=== PATIENT | male | born 1930 | race Caucasian/White ===

== ENCOUNTER 2016-07-10 12:00 | Emergency (ER) | payer MEDICARE, MEDICAID ==
[~2016-07-10 12:00] MED LIST: ACETAMINOPHEN325 M2 PO; ANTI-TUSS100 MG/5 M PO; ATIVAN2 MG/1 ML PO/SL; AUGMENTIN 875-1 EAC2 PO; BACITRACIN ZIN1 EAC1 TP; BACITRACIN28.4 G2 TP; BACTRIM DS TAB1 EACH PO; CALCIUM CARBON500 M2 PO; CALCIUM500 M4 PO; CIPRO500 M2 PO; CITRATE OF MAG300 M1 PO; CITROMA296 ML PO; COUGH SYRU100 MG/51 PO; DETROL LA2 M1 PO; DETROL LA4 MG; DETROL LA4 MG PO; ENSURE PO; FLONASE ALLERG9.9 ML; FLUOXETINE HCL20 M2 PO; IPRAT-ALBUT 0.5-3 ML NEB; LEVAQUIN750 M1 PO; LIDODERM700 MG TP; LOPERAMIDE2 M2 PO; MAPAP325 M2 PO; MAPAP500 M3 PO; MIRALAX17 G2 PO; MOBIC15 M2 PO; MOBIC15 MG PO; MORPHINE S20 MG/1 M1 PO/SL; MULTI-VITAMIN1 TAB; MULTIVITAMINS1 EAC6 PO; MYLANTA LIQUID355 M1 PO; NORCO 5-325 TA1 EACH PO; NORCO 5/3251 TAB PO; OMEPRAZOLE20 M3 PO; OMEPRAZOLE20 M4 PO; OMEPRAZOLE20 MG PO; POLYETHYLENE GL14 EA; POLYETHYLENE GL14 EA PO; PRILOSEC OTC20 MG; PROZAC20 M3 PO; PROZAC20 MG; PROZAC20 MG PO; QUETIAPINE FUMA50 M1 PO; REFRESH OPTIVE15 ML OP; REFRESH TEARS15 M1 EACH EYE; SEROQUEL25 MG; SEROQUEL25 MG PO; SEROQUEL50 M1 PO; SILACE50 MG/5 ML PO; SILTUSSIN100 MG/51 PO; THERA-M TABLET1 EACH PO; TOLTERODINE TART2 M3 PO; TUSSIN DM CLEA PO; TYLENOL EXTRA500 M1 PO; TYLENOL650 MG PO; VITAMIN D3400 UNI5 PO; VITAMIN D3400 UNIT PO; VITAMIN D400 UNI3 PO; VITAMIN D400 UNIT; WHITE PETROLATUM5 G1 TP; [UNRECOGNIZED DRUG - OTHER]; [UNRECOGNIZED DRUG - OTHER] PO
[2016-07-10 12:43] LABS: URINE APPEARANCE HAZY; URINE BILIRUBIN NEGATIVE (NEG); URINE BLOOD LARGE (NEG); URINE COLOR YELLOW; URINE GLUCOSE (UA) NEGATIVE (NEG); URINE KETONE SMALL (NEG); URINE LEUKOCYTE ESTERASE POSITIVE (NEG); URINE NITRITE NEGATIVE (NEG); URINE PROTEIN MODERATE (NEG); URINE SPECIFIC GRAVITY 1.015 (1.003-1.030)
[2016-07-10] MEDS ORDERED: ACETAMINOPHEN650 MG PR (12:52)
[2016-07-10] MEDS ORDERED: AUGMENTIN 875-1 EAC2 PO (12:53)
[2016-07-10] MEDS ORDERED: ISOPTO ATROPINE5 ML SL (12:54)
[2016-07-10] MEDS ORDERED: PROZAC20 M3 PO (12:54)
[2016-07-10] MEDS ORDERED: IPRAT-ALBUT 0.5-3 ML (12:54)
[2016-07-10 12:55] LABS: URINE WBC 20-25 /[HPF] (0-5)
[2016-07-10] MEDS ORDERED: FLONASE ALLERG9.9 ML (12:55)
[2016-07-10 12:56] LABS: URINE RBC 25-30 /[HPF] (0-5)
[2016-07-10] MEDS ORDERED: ATIVAN1 M2 PO (12:56)
[2016-07-10] MEDS ORDERED: NORCO 5-325 TA1 EACH PO (12:56)
[2016-07-10] MEDS ORDERED: COUGH SYRU100 MG/51 PO (12:56)
[2016-07-10 12:57] LABS: URINE AMORPHOUS 1+; URINE BACTERIA 3+; URINE MUCUS 1+
[2016-07-10] MEDS ORDERED: LORAZEPAM2 MG/1 M4 PO (12:57)
[2016-07-10] MEDS ORDERED: MAPAP325 M2 PO (12:57)
[2016-07-10] MEDS ORDERED: MORPHINE S20 MG/1 M1 PO (12:59)
[2016-07-10] MEDS ORDERED: OMEPRAZOLE20 M3 PO (13:01)
[2016-07-10] MEDS ORDERED: DETROL2 M1 PO (13:02)
[2016-07-10] MEDS ORDERED: SEROQUEL50 M1 PO (13:02)
[2016-07-10] MEDS ORDERED: REFRESH PLUS1 EACH EACH EYE (13:02)
[2016-07-10] MEDS ORDERED: TUSSIN DM COUG PO (13:03)
== END 2016-07-10 15:08 ==
LOC: EDMED 12:00
PROVIDERS: Nurse Practitioner Family
DX: S72.001A Fracture of unspecified part of neck of right femur, initial encounter for closed fracture (principal); N39.0 Urinary tract infection, site not specified; W19.XXXA Unspecified fall, initial encounter; Y92.019 Unspecified place in single-family (private) house as the place of occurrence of the external cause
CPT/HCPCS: J2270